=== PATIENT | female | born 1955 | race African-American/Black ===

== ENCOUNTER 2016-12-02 22:10 | Emergency (ER) | payer OTHER ==
[~2016-12-02] VITALS: Ht 162.6 cm; Wt 74.8 kg
[2016-12-02 22:12] VITALS: BP 145/90
[2016-12-02 23:17] LABS: Basophils # (auto) 0.1 uL; Basophils % (auto) 0.6 % (0.0-2.0); CONDITION Y; Eosinophils # (auto) 0.1 uL; Eosinophils % (auto) 0.6 % (0.0-7.0); Hematocrit 41.1 % (41.0-53.0); Hemoglobin 13.5 g/dL (13.5-17.5); Lymphocytes # (auto) 2.5 uL; Lymphocytes % (auto) 28.7 % (10.0-50.0); Mean Corpuscular Hemoglobin 27.1 pg (28.0-32.0); Mean Corpuscular Hgb Conc. 32.8 g/dL (32.0-36.0); Mean Corpuscular Volume 82.7 fL (80.0-100.0); Monocytes # (auto) 0.5 uL; Monocytes % (auto) 5.4 % (0.0-12.0); Neutrophils # (auto) 5.7 uL; Neutrophils % (auto) 64.7 % (37.0-80.0); Platelet Count (auto) 303 10^3/uL (140-450); Red Cell Distribution Width 16.6 % (11.6-16.0); White Blood Cell 8.8 10^3/uL (4.4-10.8)
[2016-12-02 23:19] LABS: Albumin 4.2 g/dL (3.4-5.0); Anion Gap 11 (5-15); Aspartate Aminotransferase 18 U/L (15-37); BUN/Creatinine Ratio 18.2; Blood Urea Nitrogen 14 mg/dL (7-18); Calcium 9.4 mg/dL (8.5-10.1); Carbon Dioxide 25 mmol/L (21-32); Chloride 108 mmol/L (98-107); GFR African American 133 mL/min; GFR Non-African American 110 mL/min; Glucose 104 mg/dL (74-106); Magnesium 2.3 mg/dL (1.6-2.6); Sodium 144 mmol/L (136-145)
[2016-12-02 23:22] LABS: INR 0.96 (0.9-1.15); Partial Thromboplastin Time 27.3 sec (22.64-33.71); Prothrombin Time 10.5 sec (9.37-12.3)
[2016-12-02 23:24] LABS: Alkaline Phosphatase 77 U/L (45-117); Bilirubin, Total 0.3 mg/dL (0.2-1.0); Total Protein 8.3 g/dL (6.4-8.2)
[2016-12-02 23:26] LABS: Potassium 2.9 mmol/L (3.5-5.1)
[2016-12-02 23:27] LABS: B-Type Natriuretic Peptide 1.84 pg/mL (0-100)
[2016-12-02] MEDS ORDERED: POTASSIUM CHL 10% (20 MEQ/15ML) ORAL SOLN PO ONE (23:30)
[2016-12-02 23:41] LABS: Temperature: 24.1 C (20.0-25.0)
== END 2016-12-03 00:33 | disposition other institution (70) ==
LOC: EDSEX 22:17 → ER 22:17
DX: R07.89 Other chest pain (principal); I50.9 Heart failure, unspecified; I11.0 Hypertensive heart disease with heart failure
CPT/HCPCS: 36415; 71010; 80053; 83735; 83880; 84443; 84484; 85025; 85610; 85730; 93005

== ENCOUNTER 2017-04-24 14:54 | Emergency (ER) | payer OTHER ==
[~2017-04-24] VITALS: Ht 162.6 cm; Wt 74.8 kg
[2017-04-24 16:10] LABS: Eosinophils # (auto) 0 uL; Eosinophils % (auto) 0.1 % (0.0-7.0); Hematocrit 53.8 % (36.0-46.0); Hemoglobin 17.6 g/dL (12.2-16.2); Lymphocytes # (auto) 1.5 uL; Monocytes # (auto) 0.7 uL
[2017-04-24 16:12] LABS: Basophils # (auto) 0.1 uL; Basophils % (auto) 0.6 % (0.0-2.0); Lymphocytes % (auto) 15.4 % (10.0-50.0); Mean Corpuscular Hemoglobin 32.8 pg (28.0-32.0); Mean Corpuscular Hgb Conc. 32.6 g/dL (32.0-36.0); Mean Corpuscular Volume 100.6 fL (80.0-100.0); Neutrophils # (auto) 7.7 uL; Neutrophils % (auto) 76.9 % (37.0-80.0); Nucleated Red Blood Cells % 0.2 %; Platelet Count (auto) 178 10^3/uL (140-450); Red Blood Cells 5.35 10^6/uL (4.0-5.20); Red Cell Distribution Width 14.8 % (11.8-14.3)
[2017-04-24 16:31] LABS: Alanine Aminotransferase 21 U/L (13-56); Albumin 3.7 g/dL (3.4-5.0); Alkaline Phosphatase 110 U/L (45-117); Anion Gap 7 (5-15); Aspartate Aminotransferase 20 U/L (15-37); BUN/Creatinine Ratio 15.4; Bilirubin, Total 0.6 mg/dL (0.2-1.0); Blood Urea Nitrogen 27 mg/dL (7-18); Calcium 8.4 mg/dL (8.5-10.1); Carbon Dioxide 35 mmol/L (21-32); Chloride 93 mmol/L (98-107); GFR African American 38 mL/min; GFR Non-African American 31 mL/min; Glucose 98 mg/dL (74-106); Magnesium 2.7 mg/dL (1.6-2.6); Sodium 135 mmol/L (136-145); Total Protein 7.4 g/dL (6.4-8.2)
[2017-04-24 20:01] VITALS: BP 132/90
[2017-04-24] MEDS ORDERED: FAMOTIDINE 20 MG TAB PO ONE (20:15)
[2017-04-24] MEDS ORDERED: HYDROcodone-ACET 5/325MG TAB PO ONE (20:15)
[2017-04-24] MEDS ORDERED: LIDOCAINE VISCOUS 2% 15ML UD PO ONE (20:15)
[2017-04-24] MEDS ORDERED: ALUM & MAG HYDROX-SIMETH LIQ(MAALOX) 30 ML PO ONE (20:15)
== END 2017-04-24 21:53 | disposition home or self-care (01) ==
LOC: ER 15:17
DX: R29.810 Facial weakness (principal); H92.01 Otalgia, right ear; R51 Headache; K29.00 Acute gastritis without bleeding; I11.0 Hypertensive heart disease with heart failure; I50.9 Heart failure, unspecified; K21.9 Gastro-esophageal reflux disease without esophagitis; Z86.73 Personal history of transient ischemic attack (TIA), and cerebral infarction without residual deficits
CPT/HCPCS: 36415; 70450; 80053; 83735; 84484; 85025; 93005

== ENCOUNTER 2017-04-29 13:57 | Emergency (ER) | payer OTHER ==
[~2017-04-29] VITALS: Ht 162.6 cm; Wt 79.4 kg
[2017-04-29 14:18] VITALS: BP 130/91
[2017-04-29] MEDS ORDERED: ALUM & MAG HYDROX-SIMETH LIQ(MAALOX) 30 ML PO ONE (14:45)
== END 2017-04-29 15:33 | disposition home or self-care (01) ==
LOC: ER 13:57 → EDBD 13:57 → ER 15:33
DX: K29.70 Gastritis, unspecified, without bleeding (principal); H66.91 Otitis media, unspecified, right ear; E78.5 Hyperlipidemia, unspecified; I11.0 Hypertensive heart disease with heart failure; I50.9 Heart failure, unspecified; F17.210 Nicotine dependence, cigarettes, uncomplicated; Z98.51 Tubal ligation status; Z86.73 Personal history of transient ischemic attack (TIA), and cerebral infarction without residual deficits; Z90.49 Acquired absence of other specified parts of digestive tract

== ENCOUNTER 2019-01-01 16:51 | Emergency (ER) | payer OTHER ==
[~2019-01-01] VITALS: Ht 162.6 cm; Wt 77.1 kg
[2019-01-01] MEDS ORDERED: HYDROcodone-ACET 10/325MG TAB PO ONE (17:15)
[2019-01-01 20:04] VITALS: BP 112/89
== END 2019-01-01 20:03 | disposition home or self-care (01) ==
LOC: EDBD 16:51 → ER 16:51
DX: S93.402A Sprain of unspecified ligament of left ankle, initial encounter (principal); I11.0 Hypertensive heart disease with heart failure; I50.9 Heart failure, unspecified; E78.5 Hyperlipidemia, unspecified; F17.210 Nicotine dependence, cigarettes, uncomplicated; Z98.51 Tubal ligation status; Z90.89 Acquired absence of other organs; X50.0XXA Overexertion from strenuous movement or load, initial encounter; Y93.89 Activity, other specified; Y99.8 Other external cause status; Y92.89 Other specified places as the place of occurrence of the external cause
CPT/HCPCS: 73610

== ENCOUNTER 2023-10-27 10:58 | Inpatient (IN) | payer OTHER, MEDICAID ==
[~2023-10-27] VITALS: Ht 162.6 cm; Wt 69.8 kg
[2023-10-27 11:40] VITALS: PULSE 69; O2SAT 89
[2023-10-27] MEDS: methylPREDNISolone SOD SUCC 125 MG/2 ML VL IV ONE (11:45)
[2023-10-27 11:55] LABS: Eosinophils # (auto) 0.1 10 ^3/uL (0-0.8); Lymphocytes # (auto) 1.9 10 ^3/uL (0.4-5.4); Monocytes # (auto) 0.4 10 ^3/uL (0-1.3); Nucleated Red Blood Cells % 0.1 %
[2023-10-27 11:58] LABS: Basophils # (auto) 0 10 ^3/uL (0-0.2); Basophils % (auto) 0.7 % (0.0-2.0); Eosinophils % (auto) 1.1 % (0.0-7.0); Lymphocytes % (auto) 28.3 % (10.0-50.0); Mean Corpuscular Hemoglobin 26.7 pg (28.0-32.0); Mean Corpuscular Hgb Conc. 32.7 g/dL (32.0-36.0); Mean Corpuscular Volume 81.6 fL (80.0-100.0); Monocytes % (auto) 6.1 % (0.0-12.0); Neutrophils # (auto) 4.3 10 ^3/uL (1.6-8.6); Neutrophils % (auto) 63.8 % (37.0-80.0); Red Cell Distribution Width 16.7 % (11.8-14.3); White Blood Cell 6.7 10^3/uL (4.4-10.8)
[2023-10-27 12:49] LABS: Rapid Influenza A Negative (Negative); Rapid Influenza B Negative (Negative)
[2023-10-27 12:50] LABS: COVID19 ANTIGEN SOFIA FIA NEGATIVE (NEGATIVE)
[2023-10-27] MEDS ORDERED: ACETAMINOPHEN 325 MG TAB PO PRN (14:15)
[2023-10-27 14:34] LABS: Urine Bacteria FEW /hpf (None Seen); Urine Blood Negative /uL (Negative); Urine Budding Yeast OCCASIONAL /hpf (None Seen); Urine Clarity Clear (Clear); Urine Color Light-Yellow (Yellow); Urine Protein, UAD Negative (Negative); Urine Specific Gravity 1.017 (1.001-1.035); Urine Urobilinogen Normal (Negative); Urine WBC 17 /hpf (0 - 5)
[2023-10-27 15:04] LABS: Base Excess -0.3 mmol/L (-2.0-2.0)
[2023-10-27 15:39] LABS: Albumin 4.2 g/dL (3.2-4.8); Alkaline Phosphatase 102 U/L (46-116); Anion Gap 9 (5-15); BUN/Creatinine Ratio 13.2 (10.0-20.0); Bilirubin, Total 0.4 mg/dL (0.2-1.0); Blood Urea Nitrogen 12 mg/dL (9-23); Calcium 9.6 mg/dL (8.7-10.4); Carbon Dioxide 24 mmol/L (20-30); Chloride 108 mmol/L (98-107); Glucose 98 mg/dL (74-106); Sodium 141 mmol/L (136-145); Total Protein 6.8 g/dL (5.7-8.2)
[2023-10-27 15:40] LABS: Alanine Aminotransferase < 9 U/L (7-40); Aspartate Aminotransferase < 8 U/L (13-40)
[2023-10-27] MEDS: methylPREDNISolone SOD SUCC 125 MG/2 ML VL IV SCH (15:53)
[2023-10-27] MEDS: ONDANSETRON HCL 4 MG/2 ML VIAL IV PRN (18:39)
[2023-10-27] MEDS: HYDROmorphone HCL 2 MG/ML VL/or syr IV PRN (18:40)
[2023-10-27 19:30] VITALS: PULSE 85; RESP 15; O2SAT 90
[2023-10-27] MEDS: SODIUM CHLOR 0.9% PF (SALINE LOCK) 10ML VIAL/SYR IV SCH (22:05)
[2023-10-27 23:06] VITALS: BP 160/85; PULSE 82; RESP 17; TEMP 97.4; O2SAT 96
[2023-10-27] MEDS: HYDROcodone-ACET 5/325MG TAB PO PRN (23:49)
[2023-10-27 23:59] VITALS: BP 160/85; PULSE 90; PULSE 92; RESP 18; TEMP 97.4; O2SAT 96
[2023-10-28] VITALS (8 sets, daily range): BP systolic 143–157; BP diastolic 88–102; PULSE 19–102; RESP 17–22; TEMP 97.6–98.5; O2SAT 9–95
[2023-10-28] MEDS ORDERED: BACL20TA PO (02:27)
[2023-10-28] MEDS ORDERED: METF-370 PO (02:27)
[2023-10-28] MEDS ORDERED: FLUT50SP NAS (02:27)
[2023-10-28] MEDS ORDERED: GABA-1250 PO (02:27)
[2023-10-28] MEDS ORDERED: HYDR-4072 PO (02:27)
[2023-10-28] MEDS ORDERED: FURO1TAB33 PO (02:27)
[2023-10-28] MEDS ORDERED: ATOR10TA52 PO (02:27)
[2023-10-28] MEDS: ENOXAPARIN SOD 40 MG/0.4 ML SYRINGE SC SCH (09:18)
[2023-10-28] MEDS: IPRATROPIUM BROM 0.5 MG/2.5ML INH SOL NEB SCH (12:08)
[2023-10-28] MEDS: ALBUTEROL SULF 2.5 MG/0.5ML(0.5%) NEB SOLN NEB SCH (12:08)
[2023-10-28] MEDS: GABAPENTIN 300 MG CAP PO SCH (12:38)
[2023-10-28] MEDS: BACLOFEN 10 MG TAB PO SCH (13:06)
[2023-10-28] MEDS: metFORMIN HYDROCHLORIDE 500 MG TAB PO SCH (13:06)
[2023-10-28] MEDS ORDERED: BUDESONIDE (INHALATION) 0.5 MG/2 ML NEB NEB SCH (22:00)
[2023-10-28] MEDS ORDERED: ATORVASTATIN 20 MG TAB PO SCH (22:00)
[2023-10-29] MEDS ORDERED: methylPREDNISolone SOD SUCC 40 MG/ML VL IV SCH (10:00)
[2023-10-29] MEDS ORDERED: AZITHROMYCIN 250 MG TAB PO SCH (10:00)
[2023-10-29] MEDS ORDERED: amLODIPine BESYLATE 5 MG TAB PO SCH (10:00)
== END 2023-10-28 13:15 | disposition left against medical advice (07) | DRG 189 ==
LOC: ER 10:58 → OVERFLOW 14:45 → CENTRAL 22:54
PROVIDERS: ADMIT Internal Medicine; ATTEND Nurse Practitioner Acute Care
DX: J96.01 Acute respiratory failure with hypoxia (principal); J44.1 Chronic obstructive pulmonary disease with (acute) exacerbation; I69.354 Hemiplegia and hemiparesis following cerebral infarction affecting left non-dominant side; E78.5 Hyperlipidemia, unspecified; Z20.822 Contact with and (suspected) exposure to COVID-19; F17.210 Nicotine dependence, cigarettes, uncomplicated; I50.9 Heart failure, unspecified; E11.40 Type 2 diabetes mellitus with diabetic neuropathy, unspecified; I11.0 Hypertensive heart disease with heart failure; Z53.29 Procedure and treatment not carried out because of patient's decision for other reasons
CPT/HCPCS: 36415; 36600; 71045; 71250; 80053; 81001; 82805; 83880; 84484; 85025; 85379; 87426; 87804; 99291; G0378; J2405

== ENCOUNTER 2025-01-17 21:54 | Inpatient (IN) | payer MEDICAID, OTHER ==
[~2025-01-17] VITALS: Ht 167.6 cm; Wt 66.5 kg
[~2025-01-17 21:54] MED LIST: ATOR10TA52 PO; BACL20TA PO; FLUT50SP NAS; FURO1TAB33 PO; GABA-1250 PO; HYDR-4072 PO; METF-370 PO
[2025-01-17 23:38] LABS: Hematocrit 43.3 % (36.0-46.0); Hemoglobin 13.8 g/dL (12.2-16.2); Mean Corpuscular Hemoglobin 25.2 pg (28.0-32.0); Mean Corpuscular Volume 79.2 fL (80.0-100.0); Nucleated Red Blood Cells % 0.1 %
[2025-01-17 23:52] LABS: INR 1.01 (0.9-1.15); Partial Thromboplastin Time 28.4 SEC (24.5-34.5); Prothrombin Time 10.7 sec (9.3-11.8)
[2025-01-18 00:34] LABS: Albumin 4.5 g/dL (3.2-4.8); Alkaline Phosphatase 105 U/L (46-116); Anion Gap 13 (5-15); BUN/Creatinine Ratio 23.0 (10.0-20.0); Calcium 10.0 mg/dL (8.7-10.4); Carbon Dioxide 23 mmol/L (20-31); Chloride 106 mmol/L (98-107); Glucose 101 mg/dL (74-106); Potassium 3.9 mmol/L (3.5-5.1); Sodium 142 mmol/L (136-145); Total Protein 7.4 g/dL (5.7-8.2)
[2025-01-18 00:36] LABS: Blood Urea Nitrogen 29 mg/dL (9-23)
[2025-01-18 00:37] LABS: Alanine Aminotransferase < 9 U/L (7-40); Bilirubin, Total 0.3 mg/dL (0.2-1.0)
--- NOTE | 2025-01-18 01:00 | DVH ---
CHEST RADIOGRAPH Indication: chest pain injury Technique: Single frontal view of the chest was obtained COMPARISON: XR CHEST 1 VIEW on DOS: 11/15/23, CT CHEST WITHOUT CONTRAST on DOS: 10/27/23, XY CHEST XRAY 1 VIEW on DOS: 10/27/23, XR CHEST 1 VIEW on DOS: 10/26/23, XR CHEST 1 VIEW on DOS: 12/05/22 FINDINGS: Lines and Tubes: None Lungs: Bilateral multifocal predominantly middle and lower lung zone pulmonary airspace disease. Pleura: No effusion. No pneumothorax. Cardiomediastinal contours: Cardiomegaly. Bones: Unremarkable IMPRESSION: 1. Bilateral multifocal predominantly middle and lower lung zone pulmonary airspace disease. 2. Cardiomegaly.
--- NOTE | 2025-01-18 04:09 | ED.PDOC ---
History of Present Illness HPI Comments 69 y/o F is BIBA from private residence for c/c of chest wall and left hand and wrist pain and abrasion to left lower leg s/p mechanical fall and injury. Patient is reported to have sustained a fall out of her wheelchair, yesterday evening. No reported LOC. No further injuries or acute symptoms reported. Chief Complaint: Fall Injury Time Seen by MD: 03:00 Primary Care Provider: DR RENDON Reviewed Notes: Nurses Notes, Gynecological Assistant Notes, Medications, Allergies Allergies: Coded Allergies: NO KNOWN ALLERGIES (Unverified , 12/02/16) Home Meds Reported Medications Furosemide (Lasix) 20 Mg Tb, 10 MG PO DAILY, TAB 10/28/23 Metformin Hydrochloride (Metformin Hcl) 500 Mg Tab, 1 TAB PO BID 10/28/23 Fluticasone Propionate (Nasal) (Fluticasone Propionate) 50 Mcg/Act Spr, 1 SPRAY ALEJANDRO BID 10/28/23 Gabapentin (Gabapentin) 300 Mg Cap, 1 CAP PO TID 10/28/23 Baclofen (Baclofen) 20 Mg Tab, 1 TAB PO TID 10/28/23 Atorvastatin Calcium (ATORVASTATIN CALCIUM) 10 Mg Tab, 1 TAB PO DAILY 10/28/23 Hydrocodone-Acetaminophen (Hydrocodone/Acetaminophen 10-325 mg) 1 Tab Tab, 1 TAB PO Q6HPRN PRN for chronic pain 10/28/23 Information Source: Patient, Emergency Med Personnel Mode of Arrival: EMS Severity: Moderate Timing: Hours Duration: Since onset Prehospital treatment: 12 Lead EKG, Accucheck, Associate Of Science In Nursing Past Medical History PAST MEDICAL HISTORY: CHF, CVA, High Lipids, HTN Surgical History: BTL, Tonsillectomy, Tubal Ligation FINANCIAL BUSINESS ANALYST History: No Pertinent FINANCIAL BUSINESS ANALYST History Family History Family History: No family hx of Stroke, Family hx of Cancer, Family hx of heart sendy Social History Smoker: Cigarettes Alcohol: Denies ETOH Use Drugs: Denies Drug Use Lives In: Home All Other Systems: Reviewed and Negative (As per HPI) Physical Exam General Appearance: No Apparent Distress, Obese HEENT: Normal ENT Inspection, Pharynx Normal, TMs Normal Neck: Full Range of Motion, Non-Tender, Normal, Normal Inspection Respiratory: Lungs Clear, No Accessory Muscle Use, No Respiratory Distress, Normal Breath Sounds, Other (chest wall tenderness) Cardiovascular: No Edema, No JVD, No Murmur, No Gallop, Normal Peripheral Pulses, Regular Rate/Rhythm Breast Exam: Deferred Gastrointestinal: No Organomegaly, Non Tender, No Pulsatile Mass, Normal Bowel Sounds, Soft Genitalia: Deferred Pelvic: Deferred Rectal: Deferred Extremities: No calf tenderness, Normal capillary refill, Normal range of motion, No pedal edema, Tender (left wrist ) Musculoskeletal : Apperance: Normal Neurologic: Alert, industrial engineering II-XII nml as Tested, No Motor Deficits, Normal Affect, Normal Mood, No Sensory Deficits Cerebellar Function: Normal Reflexes: Normal Skin: Dry, Normal Color, Warm, Wounds (contusion and abrasion, superficial, to left lower extremity ) Lymphatic: No Adenopathy Was a procedure done? Was a procedure done?: No Differential Dx Considerations may include: fractures, contusions, abrasions, sprain, among others X-Ray, Labs, Meds, VS Vital Signs Date Time Temp Pulse Resp B/P (MAP) Pulse Ox O2 Delivery O2 Flow Rate FiO2 01/17/25 21:54 98.5 83 14 125/71 100 98.5 Lab Test 01/18/25 01:50 01/17/25 23:28 Range/Units Troponin I High Sensitivity 3 L 3 L </=34 ng/L White Blood Count 8.5 4.4-10.8 10^3/uL Red Blood Count 5.47 H 4.0-5.20 10^6/uL Hemoglobin 13.8 12.2-16.2 g/dL Hematocrit 43.3 36.0-46.0 % Mean Corpuscular Volume 79.2 L 80.0-100.0 fL Mean Corpuscular Hemoglobin 25.2 L 28.0-32.0 pg Mean Corpuscular Hemoglobin Concent 31.9 L 32.0-36.0 g/dL Red Cell Distribution Width 19.3 H 11.8-14.3 % Platelet Count 315 140-450 10^3/uL Mean Platelet Volume 8.3 6.9-10.8 fL Neutrophils (%) (Auto) 59.5 37.0-80.0 % Lymphocytes (%) (Auto) 33.0 10.0-50.0 % Monocytes (%) (Auto) 6.0 0.0-12.0 % Eosinophils (%) (Auto) 1.0 0.0-7.0 % Basophils (%) (Auto) 0.5 0.0-2.0 % Neutrophils # (Auto) 5.1 1.6-8.6 10 ^3/uL Lymphocytes # (Auto) 2.8 0.4-5.4 10 ^3/uL Monocytes # (Auto) 0.5 0-1.3 10 ^3/uL Eosinophils # (Auto) 0.1 0-0.8 10 ^3/uL Basophils # (Auto) 0 0-0.2 10 ^3/uL Nucleated Red Blood Cells 0.1 % Prothrombin Time 10.7 9.3-11.8 sec Prothrombin Time INR 1.01 0.9-1.15 Activated Partial Thromboplast Time 28.4 24.5-34.5 SEC Sodium Level 142 136-145 mmol/L Potassium Level 3.9 3.5-5.1 mmol/L Chloride Level 106 98-107 mmol/L Carbon Dioxide Level 23 20-31 mmol/L Anion Gap 13 5-15 Blood Urea Nitrogen 29 H 9-23 mg/dL Creatinine 1.26 H 0.550-1.02 mg/dL Glomerular Filtration Rate Calc 46 >90 mL/min BUN/Creatinine Ratio 23.0 H 10.0-20.0 Serum Glucose 101 74-106 mg/dL Calcium Level 10.0 8.7-10.4 mg/dL Total Bilirubin 0.3 0.2-1.0 mg/dL Aspartate Amino Transferase (AST) < 8 L 13-40 U/L Alanine Aminotransferase (ALT) < 9 7-40 U/L Alkaline Phosphatase 105 46-116 U/L Total Protein 7.4 5.7-8.2 g/dL Albumin 4.5 3.2-4.8 g/dL Time of 1ST Reevaluation: 03:30 Reevaluation 1ST: Unchanged Patient Education/Counseling: Diagnosis, Treatment, Other (need for admission ) Family Education/Counseling: No Family Present SEPSIS Sepsis Screen Date sepsis recognized/suspect: Jan 17, 2025 Time Sepsis recognized/suspect: 2153 Recent Procedure: No On Antibiotic Therapy: No Respiratory Rate >20: No Heart Rate >90: No Temp<36 C (96.8 F) or >38.3 C: No SBP <90 or MAP <65 mmHG: No New Acute Mental Status Change: No Is the patient on CPAP, BIPAP,: No Physician Orders Electrocardigram (01/17/25 23:06) Chest Xray 1 View (01/17/25 23:06) L Forearm Xray (01/18/25 02:09) L Hand 3v Xray (01/18/25 02:09) L Tib Fib Xray (01/18/25 02:11) B-Type Natriuretic Peptide (01/18/25 04:00) Lactic Acid W/ Reflex Order (01/18/25 04:00) Blood Culture (01/18/25 04:00) Vital Signs Date Time Temp Pulse Resp B/P (MAP) Pulse Ox O2 Delivery O2 Flow Rate FiO2 01/17/25 21:54 98.5 83 14 125/71 100 98.5 Laboratory Tests Test 01/17/25 23:28 White Blood Count 8.5 10^3/uL (4.4-10.8) Departure 1 Departure Time of Disposition: 04:15 Impression: Primary Impression: Acute respiratory failure Additional Impressions: Shortness of breath Congestive heart failure Chest wall contusion Left wrist sprain Contusion of left lower leg Intermediate coronary syndrome Acute renal injury Disposition: ADMITTED INPATIENT Admit to: [facility] Condition: Guarded Discharged With: Self Comments 69-year-old female with a history of prior brain aneurysm and COPD now presents with generalized weakness and a fall and chest pain. X-rays of the left wrist and left lower leg and chest were obtained. There was no obvious fractures. Patient does have CHF on her chest x-ray. She has renal insufficiency with BUN creatinine elevated at 29 and 1.26. Patient was given Lasix and aspirin. Patient will need to be admitted for CHF and intermediate coronary syndrome Critical Care Note Critical Care Time?: Yes (35 min-critical care time only) Critical care comment: Total critical care time: Approximately 36 minutes Due to a high probability of clinically significant, life threatening deterioration, the patient required my highest level of preparedness to intervene emergently and I personally spent this critical care time directly and personally managing the patient. This critical care time included obtaining a history; examining the patient; pulse oximetry; ordering and review of studies; arranging urgent treatment with development of a management plan; evaluation of patient's response to treatment; frequent reassessment; and, discussions with other providers. This critical care time was performed to assess and manage the high probability of imminent, life-threatening deterioration that could result in multi-organ failure. It was exclusive of separately billable procedures and treating other patients. Stability Stability form required: No Heart Score Heart Score: Heart Score Response (Comments) Value History N/A 0 EKG N/A 0 Age N/A 0 Risk Factors N/A 0 Troponin N/A 0 Total 0 I personally scribed for PORTER MARIO MD ([email or web address]) on 01/18/25 at 04:09. Electronically submitted by Thomas Pedroza ([email or web address]). PORTER MARIO MD Jan 18, 2025 04:09
--- NOTE | 2025-01-18 04:20 | DVH ---
EXAM: XY L FOREARM XRAY HISTORY: pain / injury COMPARISON: XY L HAND 3V XRAY on DOS: 01/18/25 TECHNIQUE: AP and lateral views of the left forearm were performed. FINDINGS/IMPRESSION: There is questionable lucency in the distal radius. Dedicated radiographs of the wrist are recommende d. Otherwise no acute fracture or dislocation.
--- NOTE | 2025-01-18 04:21 | DVH ---
EXAM: XY L HAND 3V XRAY HISTORY: Pain injury COMPARISON: XY L FOREARM XRAY on DOS: 01/18/25 TECHNIQUE: 2 views of the left hand were performed. FINDINGS: The bones are demineralized. There is a cortical step-off in the distal radius. Fracture is not excl uded. Radiocarpal joint space narrowing is noted. Bones are otherwise intact. IMPRESSION: 1. Cortical step-off in the distal radius. Nondisplaced fracture is not excluded. Dedicated radiogra phs of the wrist or alternatively CT is recommended.
--- NOTE | 2025-01-18 04:22 | DVH ---
EXAM: XY L TIB FIB XRAY REASON FOR EXAM: Fall injury TECHNIQUE: 3 views of the left tibia/fibula COMPARISON: None. FINDINGS/IMPRESSION: No acute fracture, malalignment, or aggressive osseous lesion. No abnormal periosteal reaction or scl erosis. Soft tissues are normal.
[2025-01-18 07:30] VITALS: PULSE 85; RESP 14; O2SAT 94
[2025-01-18] MEDS: FUROSEMIDE 40 MG/4 ML VIAL IV ONE (07:45)
[2025-01-18] MEDS: HYDROcodone-ACET 5/325MG TAB PO ONE (07:54)
[2025-01-18] MEDS ORDERED: ACETAMINOPHEN 325 MG TAB PO PRN (08:15)
[2025-01-18] MEDS ORDERED: ONDANSETRON HCL 4 MG/2 ML VIAL IV PRN (08:15)
[2025-01-18] MEDS ORDERED: DOCUSATE SOD 100 MG CAP PO PRN (08:15)
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
[2025-01-18 09:04] LABS: Urine Budding Yeast OCCASIONAL /hpf (None Seen); Urine Protein, UAD Negative (Negative)
[2025-01-18] MEDS ORDERED: HYDROcodone-ACET 10/325MG TAB PO PRN (10:15)
[2025-01-18 12:09] LABS: Potassium 4.4 mmol/L (3.5-5.1)
[2025-01-18 12:16] LABS: Magnesium 1.8 mg/dL (1.6-2.6)
[2025-01-18] MEDS: MAGNESIUM SULFATE 1GM/100ML 100 ML IV SCH (13:15)
[2025-01-18] MEDS: BACLOFEN 10 MG TAB PO SCH (13:52)
[2025-01-18] MEDS: GABAPENTIN 300 MG CAP PO SCH (13:52)
[2025-01-18] MEDS: HYDROcodone-ACET 10/325MG TAB PO PRN (13:53)
[2025-01-18 16:25] VITALS: BP 136/63; PULSE 85; RESP 13; TEMP 97.7; O2SAT 91
[2025-01-18 19:36] VITALS: PULSE 94; RESP 12; O2SAT 90
[2025-01-18] MEDS: ALBUTEROL SULF 2.5 MG/0.5ML(0.5%) NEB SOLN NEB SCH (19:44)
[2025-01-18] MEDS: IPRATROPIUM BROM 0.5 MG/2.5ML INH SOL NEB SCH (19:44)
[2025-01-18 19:46] VITALS: PULSE 90; RESP 12; O2SAT 95
[2025-01-18 19:58] VITALS: PULSE 99; RESP 20; O2SAT 90
[2025-01-18] MEDS: ATORVASTATIN 20 MG TAB PO SCH (22:30)
[2025-01-19] VITALS (10 sets, daily range): BP systolic 113–135; BP diastolic 71–87; PULSE 71–98; RESP 16–18; TEMP 97.7–97.9; O2SAT 91–100
[2025-01-19 06:21] LABS: Nucleated Red Blood Cells % 0.0 %
[2025-01-19 06:24] LABS: Hematocrit 41.7 % (36.0-46.0); Hemoglobin 13.3 g/dL (12.2-16.2); Mean Corpuscular Hemoglobin 25.0 pg (28.0-32.0); Mean Corpuscular Volume 78.3 fL (80.0-100.0)
[2025-01-19 06:46] LABS: Albumin 4.5 g/dL (3.2-4.8); Alkaline Phosphatase 112 U/L (46-116); Anion Gap 11 (5-15); BUN/Creatinine Ratio 31.7 (10.0-20.0); Calcium 9.4 mg/dL (8.7-10.4); Carbon Dioxide 30 mmol/L (20-31); Chloride 100 mmol/L (98-107); Glucose 100 mg/dL (74-106); Potassium 3.8 mmol/L (3.5-5.1); Sodium 141 mmol/L (136-145); Total Protein 7.5 g/dL (5.7-8.2)
[2025-01-19 06:47] LABS: Bilirubin, Total 0.5 mg/dL (0.2-1.0)
[2025-01-19 06:48] LABS: Alanine Aminotransferase < 9 U/L (7-40); Blood Urea Nitrogen 26 mg/dL (9-23)
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
== END 2025-01-19 15:30 | disposition home or self-care (01) | DRG 604 ==
LOC: EDBD 21:54 → EDUNIT# 21:54 → ER 21:54 → OVERFLOW 01-18 08:11 → EAST 01-19 02:15
PROVIDERS: ADMIT Nurse Practitioner Acute Care; ATTEND Nurse Practitioner Acute Care
DX: S80.12XA Contusion of left lower leg, initial encounter (principal); J96.01 Acute respiratory failure with hypoxia; I69.354 Hemiplegia and hemiparesis following cerebral infarction affecting left non-dominant side; N17.9 Acute kidney failure, unspecified; S85.142A Laceration of anterior tibial artery, left leg, initial encounter; I20.0 Unstable angina; S20.219A Contusion of unspecified front wall of thorax, initial encounter; E78.5 Hyperlipidemia, unspecified; S63.502A Unspecified sprain of left wrist, initial encounter; F17.210 Nicotine dependence, cigarettes, uncomplicated; S80.812A Abrasion, left lower leg, initial encounter; W05.0XXA Fall from non-moving wheelchair, initial encounter; I11.0 Hypertensive heart disease with heart failure; I50.9 Heart failure, unspecified; Z91.81 History of falling; Z79.899 Other long term (current) drug therapy; Y93.89 Activity, other specified; Y92.89 Other specified places as the place of occurrence of the external cause; Y99.8 Other external cause status; Z99.81 Dependence on supplemental oxygen
CPT/HCPCS: 36415; 71045; 73090; 73130; 73590; 80053; 81001; 83036; 83605; 83735; 83880; 84132; 84484; 85025; 85610; 85730; 87040; 94640; 96374; 99291; G0378

== ENCOUNTER 2025-01-23 20:41 | Emergency (ER) | payer OTHER, MEDICAID ==
[~2025-01-23] VITALS: Ht 162.6 cm; Wt 67.2 kg
[2025-01-23] MEDS: HYDROcodone-ACET 5/325MG TAB PO ONE (21:15)
[2025-01-23 21:26] VITALS: BP 140/85; PULSE 76; RESP 18; TEMP 98.1; O2SAT 97
[2025-01-23 21:27] LABS: Hematocrit 38.7 % (36.0-46.0); Mean Corpuscular Volume 78.4 fL (80.0-100.0); Nucleated Red Blood Cells % 0.1 %
[2025-01-23 21:28] LABS: Hemoglobin 12.6 g/dL (12.2-16.2); Mean Corpuscular Hemoglobin 25.6 pg (28.0-32.0)
[2025-01-23 21:31] LABS: Chloride 105 mmol/L (98-107); Potassium 4.1 mmol/L (3.5-5.1); Sodium 143 mmol/L (136-145)
--- NOTE | 2025-01-23 21:31 | ED.PDOC ---
History of Present Illness HPI Comments Patient is a 69 y/o F presents with c/c of left foot discoloration and mild pain. Patient reports on noticing the bottom of her left foot being blue, yesterday and today. She states on washing said food in warm water to no return of her regular pigmentation. No prior history of issue in the past. No reported injuries or pertinent recent events. 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 Patient's O2 saturation was mildly reduced at time of evaluation. Chief Complaint: Lower Extremity Time Seen by MD: 21:00 Primary Care Provider: DR RENDON Reviewed Notes: Nurses Notes, Medications, Allergies Allergies: Coded Allergies: NO KNOWN ALLERGIES (Unverified , 12/02/16) Home Meds Reported Medications Furosemide (Lasix) 20 Mg Tb, 10 MG PO DAILY, TAB 10/28/23 Metformin Hydrochloride (Metformin Hcl) 500 Mg Tab, 1 TAB PO BID 10/28/23 Fluticasone Propionate (Nasal) (Fluticasone Propionate) 50 Mcg/Act Spr, 1 SPRAY ALEJANDRO BID 10/28/23 Gabapentin (Gabapentin) 300 Mg Cap, 1 CAP PO TID 10/28/23 Baclofen (Baclofen) 20 Mg Tab, 1 TAB PO TID 10/28/23 Atorvastatin Calcium (ATORVASTATIN CALCIUM) 10 Mg Tab, 1 TAB PO DAILY 10/28/23 Hydrocodone-Acetaminophen (Hydrocodone/Acetaminophen 10-325 mg) 1 Tab Tab, 1 TAB PO Q6HPRN PRN for chronic pain 10/28/23 Information Source: Patient, Friend Mode of Arrival: Wheelchair Severity: Mild Timing: Days Duration: Since onset Prehospital treatment: None Past Medical History PAST MEDICAL HISTORY: CHF, COPD, CVA, High Lipids, HTN Surgical History: BTL, Tonsillectomy, Tubal Ligation MEDICAL OFFICE RECEPTIONIST History: No Pertinent MEDICAL OFFICE RECEPTIONIST History Family History Family History: No family hx of Stroke, Family hx of Cancer, Family hx of heart sendy Social History Smoker: Cigarettes Alcohol: Denies ETOH Use Drugs: Denies Drug Use Lives In: Home Constitutional: denies: chills, diaphoresis, fatigue, fever, malaise, sweats, weakness, others EENTM: denies: blurred vision, double vision, ear bleeding, ear discharge, ear drainage, ear pain, ear ringing, eye pain, eye redness, hearing loss, mouth pain, mouth swelling, nasal discharge, nose bleeding, nose congestion, nose pain, photophobia, tearing, throat pain, throat swelling, voice changes, others Respiratory: denies: cough, hemoptysis, orthopnea, SOB at rest, shortness of breath, SOB with excertion, stridor, wheezing, others Cardiovascular: denies: chest pain, dizzy spells, diaphoresis, Dyspnea on exertion, edema, irregular heart beat, left arm pain, lightheadedness, palpitations, PND, syncope, others Gastrointestinal: denies: abdomen distended, abdominal pain, blood streaked bowels, constipated, diarrhea, dysphagia, difficulty swallowing, hematemesis, melena, nausea, poor appetite, poor fluid intake, rectal bleeding, rectal pain, vomiting, others Genitourinary: denies: abnormal vagina bleeding, burning, dyspareunia, dysuria, flank pain, frequency, hematuria, incontinence, pain, , vagina discha rge, urgency, others Neurological: denies: dizziness, fainting, headache, left sided numbness, left sided weakness, numbness, paresthesia, pre-existing deficit, right sided numbness, right sided weakness, seizure, speech problems, tingling, tremors, weakness, others Musculoskeletal: reports: others (Blueing of the pedal aspect of the left foot); denies: back pain, gout, joint pain, joint swelling, muscle pain, muscle stiffness, neck pain Integumetry: denies: bruises, change in color, change in hair/nails, dryness, laceration, lesions, lumps, rash, wounds, others Allergic/Immunocompromised: denies: Difficulty Healing, Frequent Infections, Hives, Itching, others Hematologic/Lymphatic: denies: anemia, blood clots, easy bleeding, easy bruising, swollen glands, others All Other Systems: Reviewed and Negative (Comprehensive review of systems are negative unless stated in HPI) Physical Exam General Appearance: Mild Distress (Moderate distress due to some anxiety related to foot concerns. Patient appears to be in poor overall health.), Normal HEENT: Normal ENT Inspection, Pharynx Normal, TMs Normal Neck: Full Range of Motion, Non-Tender, Normal, Normal Inspection Respiratory: Chest Non-Tender, No Accessory Muscle Use, No Respiratory Distress, Other (Patient has a patchy rhonchi due to her advanced COPD concerns.) Cardiovascular: No Edema, No JVD, No Murmur, No Gallop, Normal Peripheral Pulses, Regular Rate/Rhythm Breast Exam: Deferred Gastrointestinal: No Organomegaly, Non Tender, No Pulsatile Mass, Normal Bowel Sounds, Soft Genitalia: Deferred Pelvic: Deferred Rectal: Deferred Extremities: Other (Cyanotic concern appears to be vascular in the pedal aspect of the left foot. Signs were indicative of arterial disease. No signs of infection. No additional signs of trauma.) Neurologic: Alert Cerebellar Function: NOT DONE Reflexes: NOT DONE Skin: Dry, Normal Color, Warm Lymphatic: No Adenopathy Was a procedure done? Was a procedure done?: No Differential Dx Considerations may include: DVT, arterial insufficiency, venous insufficiency, Raynaud's X-Ray, Labs, Meds, VS Vital Signs Date Time Temp Pulse Resp B/P (MAP) Pulse Ox O2 Delivery O2 Flow Rate FiO2 01/23/25 21:26 98.1 76 18 140/85 (103) 97 98.1 01/23/25 21:26 76 18 97 Room Air* 0 21 01/23/25 20:47 98.2 97 20 152/79 91 98.2 Lab Test 01/23/25 21:16 Range/Units White Blood Count 6.8 4.4-10.8 10^3/uL Red Blood Count 4.94 4.0-5.20 10^6/uL Hemoglobin 12.6 12.2-16.2 g/dL Hematocrit 38.7 36.0-46.0 % Mean Corpuscular Volume 78.4 L 80.0-100.0 fL Mean Corpuscular Hemoglobin 25.6 L 28.0-32.0 pg Mean Corpuscular Hemoglobin Concent 32.6 32.0-36.0 g/dL Red Cell Distribution Width 18.3 H 11.8-14.3 % Platelet Count 271 140-450 10^3/uL Mean Platelet Volume 8.6 6.9-10.8 fL Neutrophils (%) (Auto) 54.3 37.0-80.0 % Lymphocytes (%) (Auto) 38.9 10.0-50.0 % Monocytes (%) (Auto) 4.9 0.0-12.0 % Eosinophils (%) (Auto) 1.1 0.0-7.0 % Basophils (%) (Auto) 0.8 0.0-2.0 % Neutrophils # (Auto) 3.7 1.6-8.6 10 ^3/uL Lymphocytes # (Auto) 2.6 0.4-5.4 10 ^3/uL Monocytes # (Auto) 0.3 0-1.3 10 ^3/uL Eosinophils # (Auto) 0.1 0-0.8 10 ^3/uL Basophils # (Auto) 0.1 0-0.2 10 ^3/uL Nucleated Red Blood Cells 0.1 % Sodium Level 143 136-145 mmol/L Potassium Level 4.1 3.5-5.1 mmol/L Chloride Level 105 98-107 mmol/L Carbon Dioxide Level 26 20-31 mmol/L Anion Gap 12 5-15 Blood Urea Nitrogen 23 9-23 mg/dL Creatinine 0.95 0.550-1.02 mg/dL Glomerular Filtration Rate Calc 65 >90 mL/min BUN/Creatinine Ratio 24.2 H 10.0-20.0 Serum Glucose 93 74-106 mg/dL Calcium Level 9.2 8.7-10.4 mg/dL Current Medications Medications (Trade) Dose Ordered Sig/Victoria Route Start Time Stop Time Status Last Admin Acetaminophen/ Hydrocodone Bitart (Rincon 5/325MG Tab) 1 tab ONCE ONCE PO 01/23/25 21:15 01/23/25 21:16 DC 01/23/25 21:15 X-Ray, Labs, Meds, VS Comment All studies performed the ED were evaluated by me personally. Serum studies were unremarkable for any systemic concerns. DVT study was ordered to rule out any DVT formation. Unremarkable results. Patient's condition appears to be from arterial concerns. Advised patient to follow up with the primary care provider for discussions related to today's visit and today's findings. Time of 1ST Reevaluation: 23:19 Reevaluation 1ST: Improved Patient Education/Counseling: Diagnosis, Treatment, Need For Follow Up Family Education/Counseling: No Family Present SEPSIS Sepsis Screen Date sepsis recognized/suspect: Jan 23, 2025 Time Sepsis recognized/suspect: 2046 Recent Procedure: No On Antibiotic Therapy: No Respiratory Rate >20: No Heart Rate >90: Yes Temp<36 C (96.8 F) or >38.3 C: No SBP <90 or MAP <65 mmHG: No New Acute Mental Status Change: No Is the patient on CPAP, BIPAP,: No Physician Orders Lt Lower Dvt (01/23/25 21:09) Vital Signs Date Time Temp Pulse Resp B/P (MAP) Pulse Ox O2 Delivery O2 Flow Rate FiO2 01/23/25 21:26 98.1 76 18 140/85 (103) 97 98.1 01/23/25 21:26 76 18 97 Room Air* 0 21 01/23/25 20:47 98.2 97 20 152/79 91 98.2 Laboratory Tests Test 01/23/25 21:16 White Blood Count 6.8 10^3/uL (4.4-10.8) Medications Medications Dose Ordered Sig/Victoria Route Start Time Stop Time Status Last Admin Dose Admin Acetaminophen/ Hydrocodone Bitart 1 tab ONCE ONCE PO 01/23/25 21:15 01/23/25 21:16 DC 01/23/25 21:15 Departure 1 Departure Time of Disposition: 23:20 Impression: Primary Impression: Peripheral arterial disease Disposition: HOME / SELF CARE / HOMELESS Condition: Stable Additional Instructions: Advised patient follow up with the primary care provider for discussions related to today's visit and results. e-Prescriptions Acetaminophen (Acetaminophen) 500 Mg Tab 500 MG PO Q4HP PRN, #30 TAB Prov: TARIK CARBAJAL PAC 01/23/25 Discharged With: Self, Friend Critical Care Note Critical Care Time?: No Stability Stability form required: No Heart Score Heart Score: Heart Score Response (Comments) Value History N/A 0 EKG N/A 0 Age N/A 0 Risk Factors N/A 0 Troponin N/A 0 Total 0 I personally scribed for TARIK CARBAJAL PAC ([email or web address]) on 01/23/25 at 21:31. Electronically submitted by Thomas Pedroza ([email or web address]). TARIK CARBAJAL PAC Jan 23, 2025 21:31
[2025-01-23 21:32] LABS: Anion Gap 12 (5-15); Calcium 9.2 mg/dL (8.7-10.4); Carbon Dioxide 26 mmol/L (20-31)
[2025-01-23 21:37] LABS: BUN/Creatinine Ratio 24.2 (10.0-20.0); Blood Urea Nitrogen 23 mg/dL (9-23); Glucose 93 mg/dL (74-106)
--- NOTE | 2025-01-23 21:54 | DVH ---
EXAM: US LT LOWER DVT HISTORY: DVT rule out TECHNIQUE: Duplex Doppler evaluation of the deep venous system of the left lower extremity from the c ommon femoral vein to the popliteal vein including color Doppler and spectral/pulsed waveform analysi s was performed. COMPARISON: XY L TIB FIB XRAY on DOS: 01/18/25 FINDINGS: The common femoral vein demonstrates appropriate compressibility and waveform variability. There is compressibility/patency of the great saphenous vein at the proximal thigh. The femoral vein demonstrates appropriate compressibility and waveform variability. The deep femoral vein demonstrates appropriate compressibility and waveform variability. The popliteal vein demonstrates appropriate compressibility and waveform variability. There is normal compressibility at the tibioperoneal trunk. IMPRESSION: 1. No left femoropopliteal venous thrombosis. If clinical concern/symptoms persist or worsen, short-i nterval follow-up study is suggested.
[2025-01-23] MEDS ORDERED: ACET500T58 PO (23:21)
== END 2025-01-23 23:43 | disposition home or self-care (01) ==
LOC: ER 20:41
DX: I73.9 Peripheral vascular disease, unspecified (principal); I11.0 Hypertensive heart disease with heart failure; I50.9 Heart failure, unspecified; F17.210 Nicotine dependence, cigarettes, uncomplicated; J44.9 Chronic obstructive pulmonary disease, unspecified; Z79.899 Other long term (current) drug therapy; Z98.51 Tubal ligation status; Z86.73 Personal history of transient ischemic attack (TIA), and cerebral infarction without residual deficits; Z79.84 Long term (current) use of oral hypoglycemic drugs; Z90.89 Acquired absence of other organs
CPT/HCPCS: 36415; 80048; 85025; 93971